=== PATIENT | female | born 1950 | race Caucasian/White ===

== ENCOUNTER 2017-05-02 13:59 | Emergency (ER) | payer MEDICARE, OTHER ==
[2017-05-02] MEDS ORDERED: Aspirin 81 MG Tab.Chew PO ONE (14:06)
[2017-05-02] MEDS ORDERED: Sodium Chloride 0.9% 10 ML Syringe FLUSH PRN (14:06)
[2017-05-02 14:12] VITALS: BP 136/57
--- NOTE | 2017-05-02 14:19 | EDM.PDOC ---
ED HPI GENERAL MEDICAL PROBLEM - General Chief Complaint: Chest Pain Stated Complaint: SOB Time Seen by Provider: 05/02/17 14:00 Source of Information: Reports: Patient History Limitations: Reports: No Limitations - History of Present Illness INITIAL COMMENTS - FREE TEXT/NARRATIVE: Debo comes in approximately 10 minutes after experiencing an episode of dizziness, rapid heart beat and weakness, associated with some retrosternal chest pains. Sxs lasted for less than a minute, but she is visibly shaken. There was no headache, change in vision, SOB, nausea, or sweats. Of interest is a PMH of "racing heart" studied at the [facility] in 2010, no confirmation of tachyarrthymia, and managed with Cartia XT successfully over the past 4 years. She has been med compliant. Chest Pain Score (Numeric/FACES): 0 - Related Data Allergies Allergy/AdvReac Type Severity Reaction Status Date / Time Antihistamines - Alkylamine Allergy Cannot Verified 05/02/17 14:05 Remember iodine Allergy Cannot Verified 05/02/17 14:05 Remember Penicillins Allergy Cannot Verified 05/02/17 14:05 Remember povidone-iodine Allergy Cannot Verified 05/02/17 14:05 [From Betadine] Remember soap [From Betadine] Allergy Cannot Verified 05/02/17 14:05 Remember Sulfa (Sulfonamide Allergy Cannot Verified 05/02/17 14:05 Antibiotics) Remember Home Meds: Home Meds Aspirin [Adult Low Dose Aspirin EC] 81 mg PO DAILY 01/30/14 [History] Diltiazem [Cardizem CD] 180 mg PO DAILY 01/30/14 [History] Hydrochlorothiazide/Lisinopril [Lisinopril/HCTZ 20-12.5 MG] 1 tab PO DAILY 01/30 [History] atorvaSTATin Calcium [Atorvastatin Calcium] 10 mg PO DAILY 01/30/14 [History] Past Medical History Cardiovascular History: Reports: Other (See Below) (cardiac dysrhythmia) Social & Family History - Tobacco Use Second Hand Smoke Exposure: Yes - Alcohol Use Days Per Week of Alcohol Use: 0 - Recreational Drug Use Recreational Drug Use: No ED ROS GENERAL - Review of Systems Review Of Systems: ROS reveals no pertinent complaints other than HPI. ED EXAM, GENERAL - Physical Exam Exam: See Below Exam Limited By: No Limitations General Appearance: Alert, WD/WN, Anxious Throat/Mouth: Normal Inspection, Normal Oropharynx, No Airway Compromise Head: Normocephalic Neck: Normal Inspection, Supple, Non-Tender Respiratory/Chest: No Respiratory Distress, Lungs Clear, Normal Breath Sounds, Chest Non-Tender Cardiovascular: Normal Peripheral Pulses, Regular Rate, Rhythm, No Edema, No Gallop, No Murmur GI/Abdominal: Normal Bowel Sounds, Soft, Non-Tender, No Organomegaly, No Distention, No Mass Back Exam: Normal Inspection Extremities: Normal Inspection Neurological: Alert, Oriented, CN II-XII Intact, Normal Cognition, No Motor/ Sensory Deficits Psychiatric: Normal Affect, Anxious Skin Exam: Warm, Dry Lymphatic: No Adenopathy Course - Vital Signs Text/Narrative:: Debo remained stable at the [facility] ED. No meds were administered. She remained in a NSR. Last Recorded V/S: Last Vital Signs Temp 36.6 C 05/02/17 14:10 Pulse 94 05/02/17 14:10 Resp 21 H 05/02/17 14:10 BP 136/57 L 05/02/17 14:10 Pulse Ox 95 05/02/17 14:10 - Orders/Labs/Meds Orders: Active Orders 24 hr Category Date Time Status EKG Documentation Completion [RC] ASDIRECTED Care 05/02/17 14:06 Active Sodium Chloride 0.9% [Saline Flush] Med 05/02/17 14:06 Active 10 ml FLUSH ASDIRECTED PRN Saline Lock Insert [OM.PC] Routine Oth 05/02/17 14:06 Ordered EKG 12 Lead [EK] Routine Ther 05/02/17 14:05 Ordered Medication Orders Sodium Chloride (Saline Flush) 10 ml FLUSH ASDIRECTED PRN PRN Reason: Keep Vein Open Last Admin: 05/02/17 14:12 Dose: 10 ml Labs: Laboratory Tests 05/02/17 05/02/17 05/02/17 Range/Units 14:15 14:15 14:15 WBC 8.1 (4.5-12.0) X10-3/uL RBC 4.70 (3.23-5.20) x10(6)uL Hgb 14.1 (11.5-15.5) g/dL Hct 41.8 (30.0-51.3) % MCV 88.9 (80-96) fL MCH 30.1 (27.7-33.6) pg MCHC 33.8 (32.2-35.4) g/dL RDW 12.8 (11.5-15.5) % Plt Count 251 (125-369) X10(3)uL MPV 8.4 (7.4-10.4) fL Neut % (Auto) 64.7 (46-82) % Lymph % (Auto) 25.6 (13-37) % [place] % (Auto) 7.0 (4-12) % Eos % (Auto) 2 (1.0-5.0) % Baso % (Auto) 1 (0-2) % Neut # (Auto) 5.2 (1.6-8.3) # Lymph # (Auto) 2.1 (0.6-5.0) # [place] # (Auto) 0.6 (0.0-1.3) # Eos # (Auto) 0.2 (0.0-0.8) # Baso # (Auto) 0.0 (0.0-0.2) # Sodium 137 (135-145) mmol/L Potassium 3.9 (3.5-5.3) mmol/L Chloride 105 (100-110) mmol/L Carbon Dioxide 23 (23-29) mmol/L BUN 21 (8-23) mg/dL Creatinine 1.2 (0.6-1.3) mg/dL Est Cr Clr Drug Dosing 41.50 mL/min Estimated GFR (MDRD) 45 L (>60) BUN/Creatinine Ratio 17.5 (9-20) Glucose 152 H (80-116) mg/dL Calcium 9.4 (8.6-10.2) mg/dL Total Bilirubin 0.7 (0.1-1.3) mg/dL AST 22 (5-27) IU/L ALT 14 (14-26) IU/L Alkaline Phosphatase 92 (56-112) IU/L Troponin I < 0.01 L (0.02-0.06) NG/ML Total Protein 7.4 (6.0-8.0) g/dL Albumin 4.4 (3.2-4.6) g/dL Globulin 3.0 g/dL Albumin/Globulin Ratio 1.5 TSH, Ultra Sensitive (0.4-5.5) nlU/mL 09/03/17 Range/Units 14:15 WBC (4.5-12.0) X10-3/uL RBC (3.23-5.20) x10(6)uL Hgb (11.5-15.5) g/dL Hct (30.0-51.3) % MCV (80-96) fL MCH (27.7-33.6) pg MCHC (32.2-35.4) g/dL RDW (11.5-15.5) % Plt Count (125-369) X10(3)uL MPV (7.4-10.4) fL Neut % (Auto) (46-82) % Lymph % (Auto) (13-37) % [place] % (Auto) (4-12) % Eos % (Auto) (1.0-5.0) % Baso % (Auto) (0-2) % Neut # (Auto) (1.6-8.3) # Lymph # (Auto) (0.6-5.0) # [place] # (Auto) (0.0-1.3) # Eos # (Auto) (0.0-0.8) # Baso # (Auto) (0.0-0.2) # Sodium (135-145) mmol/L Potassium (3.5-5.3) mmol/L Chloride (100-110) mmol/L Carbon Dioxide (23-29) mmol/L BUN (8-23) mg/dL Creatinine (0.6-1.3) mg/dL Est Cr Clr Drug Dosing mL/min Estimated GFR (MDRD) (>60) BUN/Creatinine Ratio (9-20) Glucose (80-116) mg/dL Calcium (8.6-10.2) mg/dL Total Bilirubin (0.1-1.3) mg/dL AST (5-27) IU/L ALT (14-26) IU/L Alkaline Phosphatase (56-112) IU/L Troponin I (0.02-0.06) NG/ML Total Protein (6.0-8.0) g/dL Albumin (3.2-4.6) g/dL Globulin g/dL Albumin/Globulin Ratio TSH, Ultra Sensitive 1.67 (0.4-5.5) nlU/mL Meds: Medications Generic Name Dose Route Start Last Admin Trade Name Kolton PRN Reason Stop Dose Admin Sodium Chloride 10 ml 05/02/17 14:06 05/02/17 14:12 Saline Flush FLUSH 10 ml ASDIRECTED PRN Administration Keep Vein Open Discontinued Medications Generic Name Dose Route Start Last Admin Trade Name Kolton PRN Reason Stop Dose Admin Aspirin 324 mg 05/02/17 14:06 05/02/17 14:00 Aspirin PO 05/02/17 14:07 324 mg ONETIME ONE Administration Departure - Departure Time of Disposition: 15:05 Disposition: Home, Self-Care 01 Condition: Good Clinical Impression: Atypical chest pain Forms: ED Department Discharge - Problem List & Annotations (1) Atypical chest pain SNOMED Code(s): 336262005 Code(s): R07.89 - OTHER CHEST PAIN Status: Acute Annotation/Comment:: Atypical chest pain, resolved. There were transient co-morbid sxs of dizziness that were momentary. She is asx. She will remain on the Cartia XT as directed, and follow up with PCP. - Problem List Review Problem List Initiated/Reviewed/Updated: Yes - My Orders Last 24 Hours: My Active Orders 05/02/17 14:05 EKG 12 Lead [EK] Routine 05/02/17 14:06 EKG Documentation Completion [RC] ASDIRECTED Sodium Chloride 0.9% [Saline Flush] 10 ml FLUSH ASDIRECTED PRN Saline Lock Insert [OM.PC] Routine - Assessment/Plan Last 24 Hours: My Active Orders 05/02/17 14:05 EKG 12 Lead [EK] Routine 05/02/17 14:06 EKG Documentation Completion [RC] ASDIRECTED Sodium Chloride 0.9% [Saline Flush] 10 ml FLUSH ASDIRECTED PRN Saline Lock Insert [OM.PC] Routine Plan: Follow up with PCP.
== END 2017-05-02 15:10 | disposition home or self-care (01) ==
LOC: FB.ED 13:59
DX: R07.89 Other chest pain (principal); Z88.0 Allergy status to penicillin; Z88.2 Allergy status to sulfonamides; Z91.048 Other nonmedicinal substance allergy status; Z88.6 Allergy status to analgesic agent; Z79.82 Long term (current) use of aspirin
CPT/HCPCS: 36415; 80053; 84443; 84484; 85025; 93005; 99285; A9270; J7050; 99283

== ENCOUNTER 2018-12-27 01:10 | Emergency (ER) | payer MEDICARE, OTHER ==
[2018-12-27 01:29] VITALS: BP 132/63
[2018-12-27] MEDS ORDERED: Aspirin 81 MG Tab.Chew PO ONE (01:38)
[2018-12-27] MEDS ORDERED: Sodium Chloride 0.9% 500 ML IV ONE (01:39)
[2018-12-27] MEDS ORDERED: Aspirin 81 MG Tab.Chew PO STA (01:40)
--- NOTE | 2018-12-27 01:42 | EDM.PDOC ---
ED HPI GENERAL MEDICAL PROBLEM - General Chief Complaint: Cardiovascular Problem Stated Complaint: CHEST DISCOMFORT Time Seen by Provider: 12/27/18 01:10 Source of Information: Reports: Patient, Family History Limitations: Reports: No Limitations - History of Present Illness INITIAL COMMENTS - FREE TEXT/NARRATIVE: 68 y.o.w.f with a h/o HTN, came to the ED with her due to right shoulder pain which started a few min after she got dizzy and lightheaded while driving her car. Pt took 91 mg of ASA EXTRACTOR PULLER. On arrival to the ED, he c/o right arm pain, going up her shoulder and neck. The pain is present at rest, worse with movement of her shoulder. Pt denied trauma. No F/C, No N/V no sob. BP 132/ 63 RR 18 Pulse ox 96% on RA Pulse 71 Temp 36.6 Onset Date: 12/26/18 Onset Time: 17:00 Duration: Hour(s):, Intermittent Location: Reports: Upper Extremity, Right Quality: Reports: Ache, Burning, Dull Severity: Moderate Improves with: Reports: Rest Worsens with: Reports: Movement (of right shoulder) Context: Reports: Other (pain came on at rest.) Associated Symptoms: Reports: Diaphoresis Treatments EXTRACTOR PULLER: Reports: Aspirin (81 mg) R shoulder & neck Pain Score (Numeric/FACES): 7 - Related Data Allergies Allergy/AdvReac Type Severity Reaction Status Date / Time Antihistamines - Alkylamine Allergy Cannot Verified 12/27/18 01:20 Remember iodine Allergy Cannot Verified 12/27/18 01:20 Remember Penicillins Allergy Cannot Verified 12/27/18 01:20 Remember povidone-iodine Allergy Cannot Verified 12/27/18 01:20 [From Betadine] Remember soap [From Betadine] Allergy Cannot Verified 12/27/18 01:20 Remember Sulfa (Sulfonamide Allergy Cannot Verified 12/27/18 01:20 Antibiotics) Remember Home Meds: Home Meds Aspirin [Adult Low Dose Aspirin EC] 81 mg PO DAILY 01/30/14 [History] Diltiazem [Cardizem CD] 180 mg PO DAILY 01/30/14 [History] Hydrochlorothiazide/Lisinopril [Lisinopril/HCTZ 20-12.5 MG] 1 tab PO DAILY 01/30 [History] atorvaSTATin Calcium [Atorvastatin Calcium] 10 mg PO BEDTIME 01/30/14 [History] Past Medical History Cardiovascular History: Reports: Other (See Below) (cardiac dysrhythmia) 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: Musculoskeletal History: Reports: Back Pain, Chronic - Past Surgical History GI Surgical History: Reports: Appendectomy, Cholecystectomy, Colonoscopy Social & Family History - Caffeine Use Caffeine Use: Reports: Coffee ED ROS GENERAL - Review of Systems Review Of Systems: See Below Constitutional: Reports: No Symptoms HEENT: Reports: No Symptoms Respiratory: Reports: No Symptoms Cardiovascular: Reports: Chest Pain, Lightheadedness Endocrine: Reports: No Symptoms GI/Abdominal: Reports: No Symptoms : Reports: No Symptoms Musculoskeletal: Reports: No Symptoms Skin: Reports: No Symptoms Neurological: Reports: No Symptoms Psychiatric: Reports: No Symptoms Hematologic/Lymphatic: Reports: No Symptoms Immunologic: Reports: No Symptoms ED EXAM, GENERAL - Physical Exam Exam: See Below Exam Limited By: No Limitations General Appearance: Alert, WD/WN, Moderate Distress Eye Exam: Bilateral Eye: Normal Inspection Ears: Normal External Exam Ear Exam: Bilateral Ear: Auricle Normal Nose: Normal Inspection Throat/Mouth: Normal Inspection Head: Atraumatic, Normocephalic Neck: Normal Inspection, Supple, Non-Tender Respiratory/Chest: No Respiratory Distress, Lungs Clear, Normal Breath Sounds, Chest Non-Tender Cardiovascular: Normal Peripheral Pulses, Regular Rate, Rhythm, No Edema Peripheral Pulses: 1+: Brachial (R) GI/Abdominal: Normal Bowel Sounds, Soft, Non-Tender, No Organomegaly (Female) Exam: Deferred Rectal (Female) Exam: Deferred Back Exam: Normal Inspection, Full Range of Motion Extremities: Normal Inspection, Normal Range of Motion, Non-Tender Neurological: Alert, Oriented, CN II-XII Intact, Normal Cognition, Normal Gait Psychiatric: Normal Affect, Normal Mood Skin Exam: Warm, Dry, Intact, Normal Color, No Rash Lymphatic: No Adenopathy EKG INTERPRETATION EKG Date: 12/27/18 Time: 01:15 Rhythm: NSR Rate (Beats/Min): 68 [place]: Normal P-Wave: Present QRS: Normal ST-T: Normal QT: Normal Comparison: NA - No Prior EKG Course - Vital Signs Text/Narrative:: 68 y.o.w.f with a h/o HTN, came to the ED with her due to right shoulder pain which started a few min after she got dizzy and lightheaded while driving her car. Pt took 91 mg of ASA EXTRACTOR PULLER. On arrival to the ED, he c/o right arm pain, going up her shoulder and neck. The pain is present at rest, worse with movement of her shoulder. Pt denied trauma. No F/C, No N/V no sob. BP 132/ 63 RR 18 Pulse ox 96% on RA Pulse 71 Temp 36.6 PE: Obese 68 y.o.w.f with right shoulder gill at rest Imaging: CXR: NAD Angio CT: Unable to be performed due to allergica to iodine Labs: D Dimer: 0.81 CBC neg except WBC 12.4 BMP Nl except BUN was 25 Cr 1.3 GFR 41 Ca 10.4 Troponin was nl 0.017 Impression: Elevated D Dimer, unstable angina Tx: ASA, Lovenox 3.14 am Consultation: Fan, Hospitalist, [facility]: Accepted the patient for transfer and further care. Reexam: Her pain subsided after Tx Plan: Transfer to [facility] for further care Last Recorded V/S: Last Vital Signs Temp 36.4 C 12/27/18 01:10 Pulse 78 12/27/18 01:10 Resp 18 12/27/18 01:10 BP 132/63 12/27/18 01:10 Pulse Ox 96 12/27/18 01:10 - Orders/Labs/Meds Orders: Active Orders 24 hr Category Date Time Status Ang Chest [CT] Stat Exams 12/27/18 02:18 Ordered Chest 1V Frontal [CR] Stat Exams 12/27/18 01:39 Taken Peripheral IV Insertion Adult [OM.PC] Routine Oth 12/27/18 03:37 Ordered Labs: Laboratory Tests 12/27/18 12/27/18 12/27/18 Range/Units 01:15 01:15 01:15 WBC 12.1 H (4.5-12.0) X10-3/uL RBC 5.03 (3.23-5.20) x10(6)uL Hgb 15.3 (11.5-15.5) g/dL Hct 45.6 (30.0-51.3) % MCV 90.6 (80-96) fL MCH 30.3 (27.7-33.6) pg MCHC 33.5 (32.2-35.4) g/dL RDW 12.8 (11.5-15.5) % Plt Count 229 (125-369) X10(3)uL MPV 9.5 (7.4-10.4) fL Neut % (Auto) 69.2 (46-82) % Lymph % (Auto) 20.4 (13-37) % [place] % (Auto) 6.5 (4-12) % Eos % (Auto) 2 (1.0-5.0) % Baso % (Auto) 2 (0-2) % Neut # (Auto) 8.4 H (1.6-8.3) # Lymph # (Auto) 2.5 (0.6-5.0) # [place] # (Auto) 0.8 (0.0-1.3) # Eos # (Auto) 0.2 (0.0-0.8) # Baso # (Auto) 0.2 (0.0-0.2) # PT 9.6 (8.7-11.1) INR 0.99 (0.89-1.13) D-Dimer, Quantitative 0.81 H (0.0-0.59) mg/LFEU Sodium 140 (135-145) mmol/L Potassium 3.7 (3.5-5.3) mmol/L Chloride 103 (100-110) mmol/L Carbon Dioxide 29 (21-32) mmol/L BUN 25 H (7-18) mg/dL Creatinine 1.3 H (0.55-1.02) mg/dL Est Cr Clr Drug Dosing 37.27 mL/min Estimated GFR (MDRD) 41 L (>60) BUN/Creatinine Ratio 19.2 (9-20) Glucose 122 H (80-116) mg/dL Calcium 10.4 H (8.6-10.2) mg/dL Magnesium (1.8-2.5) mg/dL Troponin I (<0.017-0.056) ng/mL 12/27/18 12/27/18 Range/Units 01:15 01:15 WBC (4.5-12.0) X10-3/uL RBC (3.23-5.20) x10(6)uL Hgb (11.5-15.5) g/dL Hct (30.0-51.3) % MCV (80-96) fL MCH (27.7-33.6) pg MCHC (32.2-35.4) g/dL RDW (11.5-15.5) % Plt Count (125-369) X10(3)uL MPV (7.4-10.4) fL Neut % (Auto) (46-82) % Lymph % (Auto) (13-37) % [place] % (Auto) (4-12) % Eos % (Auto) (1.0-5.0) % Baso % (Auto) (0-2) % Neut # (Auto) (1.6-8.3) # Lymph # (Auto) (0.6-5.0) # [place] # (Auto) (0.0-1.3) # Eos # (Auto) (0.0-0.8) # Baso # (Auto) (0.0-0.2) # PT (8.7-11.1) INR (0.89-1.13) D-Dimer, Quantitative (0.0-0.59) mg/LFEU Sodium (135-145) mmol/L Potassium (3.5-5.3) mmol/L Chloride (100-110) mmol/L Carbon Dioxide (21-32) mmol/L BUN (7-18) mg/dL Creatinine (0.55-1.02) mg/dL Est Cr Clr Drug Dosing mL/min Estimated GFR (MDRD) (>60) BUN/Creatinine Ratio (9-20) Glucose (80-116) mg/dL Calcium (8.6-10.2) mg/dL Magnesium 2.0 (1.8-2.5) mg/dL Troponin I < 0.017 L (<0.017-0.056) ng/mL Meds: Medications Discontinued Medications Generic Name Dose Route Start Last Admin Trade Name Romeoq PRN Reason Stop Dose Admin Aspirin 243 mg 12/27/18 01:38 12/27/18 01:43 Aspirin PO 12/27/18 01:39 243 mg ONETIME ONE Administration Aspirin 162 mg 12/27/18 01:40 12/27/18 01:44 Aspirin PO 12/27/18 01:41 Not Given ONETIME STA Enoxaparin Sodium 100 mg 12/27/18 03:25 12/27/18 03:37 Lovenox SUBCUT 12/27/18 03:26 100 mg ONETIME STA Administration Sodium Chloride 500 mls @ 999 mls/hr 12/27/18 01:39 12/27/18 03:37 Normal Saline IV 12/27/18 02:09 Not Given .BOLUS ONE Iopamidol 75 ml 12/27/18 02:27 Isovue-370 (76%) IV 12/27/18 02:28 ASDIRECTED ONE Sodium Chloride 10 ml 12/27/18 03:37 12/27/18 02:25 Saline Flush FLUSH 10 ml ASDIRECTED PRN Administration Keep Vein Open Departure - Departure Time of Disposition: 03:49 Disposition: DC/Tfer to Acute Hospital 02 Reason for Transfer *Q: Other (No VQ scan availability) Condition: Fair Clinical Impression: Unstable angina, D-dimer, elevated Instructions: Enoxaparin injection Referrals: Rizwan Vo MD [Primary Care Provider] - Forms: ED Department Discharge - My Orders Last 24 Hours: My Active Orders 12/27/18 01:39 Chest 1V Frontal [CR] Stat 12/27/18 02:18 Ang Chest [CT] Stat 12/27/18 03:37 Peripheral IV Insertion Adult [OM.PC] Routine - Assessment/Plan Last 24 Hours: My Active Orders 12/27/18 01:39 Chest 1V Frontal [CR] Stat 12/27/18 02:18 Ang Chest [CT] Stat 12/27/18 03:37 Peripheral IV Insertion Adult [OM.PC] Routine
[2018-12-27] MEDS ORDERED: Iopamidol 755 Mg/ML 75 ML Bottle IV ONE (02:27)
[2018-12-27] MEDS ORDERED: Enoxaparin 100 MG/1 ML Syringe SUBCUT STA (03:25)
[2018-12-27] MEDS ORDERED: Sodium Chloride 0.9% 10 ML Syringe FLUSH PRN (03:37)
--- NOTE | 2018-12-27 10:23 | CR ---
INDICATION: Chest pain. CHEST ONE VIEW: AP portable upright view of the chest was obtained 12/27/18 and compared with 10/18/10. The heart did not appear enlarged. The aorta is tortuous to a moderate degree. Overlying EKG leads are noted. A definite active infiltrate or effusion was not identified. Evidence of exogenous obesity is noted. IMPRESSION: No acute process. MTDD
== END 2018-12-27 04:36 ==
LOC: FB.ED 01:10
DX: I20.0 Unstable angina (principal); R79.1 Abnormal coagulation profile; Z88.0 Allergy status to penicillin; Z88.8 Allergy status to other drugs, medicaments and biological substances; Z88.2 Allergy status to sulfonamides; Z79.82 Long term (current) use of aspirin; Z79.899 Other long term (current) drug therapy
CPT/HCPCS: 36415; 71045; 80048; 83735; 84484; 85025; 85379; 85610; 96372; 99284; A9270; J1650

== ENCOUNTER 2020-07-17 15:29 | Emergency (ER) | payer MEDICARE, OTHER ==
[2020-07-17] MEDS ORDERED: Sodium Chloride 0.9% 10 ML Syringe FLUSH PRN (15:48)
[2020-07-17] MEDS ORDERED: Diltiazem 25 MG/5 ML SDV IVPUSH STA (15:55)
[2020-07-17] MEDS ORDERED: Diltiazem 25 MG/5 ML SDV IVPUSH ONE (16:59)
--- NOTE | 2020-07-17 18:25 | EDM.PDOC ---
ED HPI GENERAL MEDICAL PROBLEM - General Chief Complaint: General Stated Complaint: WEAKNESS,DIZZINESS Time Seen by Provider: 07/17/20 15:40 Source of Information: Reports: Patient History Limitations: Reports: No Limitations - History of Present Illness INITIAL COMMENTS - FREE TEXT/NARRATIVE: patient presented to the ED from the clinic because of palpitations, weakness, and dizziness. When she was triaged in the clinic she was tachycardic at 189 although she denies any chest pain, nausea, vomiting, or dyspnea. She also c/o being constipated for 1 week now. low abdomen Pain Score (Numeric/FACES): 3 - Related Data Allergies Allergy/AdvReac Type Severity Reaction Status Date / Time Antihistamines - Alkylamine Allergy Cannot Verified 07/17/20 15:44 Remember iodine Allergy Cannot Verified 07/17/20 15:44 Remember Penicillins Allergy Cannot Verified 07/17/20 15:44 Remember povidone-iodine Allergy Cannot Verified 07/17/20 15:44 [From Betadine] Remember soap [From Betadine] Allergy Cannot Verified 07/17/20 15:44 Remember Sulfa (Sulfonamide Allergy Cannot Verified 07/17/20 15:44 Antibiotics) Remember Home Meds: Home Meds Aspirin [Adult Low Dose Aspirin EC] 81 mg PO DAILY 01/30/14 [History] Diltiazem [Cardizem CD] 180 mg PO DAILY 01/30/14 [History] Hydrochlorothiazide/Lisinopril [Lisinopril/HCTZ 20-12.5 MG] 1 tab PO DAILY 01/30/14 [History] atorvaSTATin Calcium [Atorvastatin Calcium] 10 mg PO BEDTIME 01/30/14 [History] Past Medical History Cardiovascular History: Reports: Other (See Below) (cardiac dysrhythmia) Gastrointestinal History: Reports: GERD 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: Musculoskeletal History: Reports: Back Pain, Chronic Endocrine/Metabolic History: Reports: Obesity/BMI 30+ Oncologic (Cancer) History: Reports: Malignant Melanoma Dermatologic History: Reports: Melanoma - Infectious Disease History Infectious Disease History: Reports: Chicken Pox, Influenza, Measles, Mumps - Past Surgical History GI Surgical History: Reports: Appendectomy, Cholecystectomy, Colonoscopy Social & Family History - Family History Family Medical History: No Pertinent Family History - Caffeine Use Caffeine Use: Reports: Coffee ED ROS GENERAL - Review of Systems Review Of Systems: See Below Constitutional: Reports: No Symptoms HEENT: Reports: No Symptoms Respiratory: Reports: No Symptoms Cardiovascular: Reports: Lightheadedness, Palpitations Endocrine: Reports: No Symptoms GI/Abdominal: Reports: Constipation : Reports: No Symptoms Musculoskeletal: Reports: No Symptoms Skin: Reports: No Symptoms Neurological: Reports: Dizziness ED EXAM, GENERAL - Physical Exam Exam: See Below Exam Limited By: No Limitations General Appearance: Alert, No Apparent Distress Ears: Normal External Exam, Normal Canal, Hearing Grossly Normal Nose: Normal Inspection, Normal Mucosa Throat/Mouth: Normal Inspection, Normal Lips, Normal Teeth Head: Atraumatic, Normocephalic Neck: Normal Inspection, Supple, Non-Tender, Full Range of Motion Respiratory/Chest: No Respiratory Distress, Lungs Clear, Normal Breath Sounds Cardiovascular: Normal Peripheral Pulses, No Edema, No Gallop, Tachycardia GI/Abdominal: Normal Bowel Sounds, Soft, Non-Tender, No Organomegaly Back Exam: Normal Inspection, Full Range of Motion Extremities: Normal Inspection, Normal Range of Motion, Non-Tender Neurological: Alert, Oriented, CN II-XII Intact, Normal Cognition, Normal Gait Course - Vital Signs Text/Narrative:: Labs/EKG result was discussed with patient EKG-Sinus Tachycardia Cardizem a total of 25 mg IV was given and her HR was down to 70's upon discharge and her symptoms resolved. Last Recorded V/S: Last Vital Signs Temp 36.6 C 07/17/20 18:40 Pulse 77 07/17/20 18:40 Resp 18 07/17/20 18:40 BP 136/72 07/17/20 18:40 Pulse Ox 98 07/17/20 18:40 - Orders/Labs/Meds Orders: Active Orders 24 hr Category Date Time Status Saline Lock Insert [OM.PC] Routine Oth 07/17/20 15:48 Ordered EKG 12 Lead [EK] Routine Ther 07/17/20 15:48 Ordered Labs: Laboratory Tests 07/17/20 07/17/20 07/17/20 Range/Units 16:15 16:35 16:35 WBC 10.5 H (3.0-10.3) x10-3/uL RBC 4.80 (3.60-5.20) x10(6)uL Hgb 14.7 (11.4-15.5) g/dL Hct 43.1 (34.2-48.2) % MCV 89.9 (76.7-100.5) fL MCH 30.6 (23.9-33.9) pg MCHC 34.1 (31.9-34.8) g/dL RDW 13.3 (12.3-16.5) % Plt Count 293 (151-488) x10(3)uL MPV 10.0 (7.1-12.4) fL Neut % (Auto) 78.0 H (30.8-76.2) % Lymph % (Auto) 12.3 L (18.4-52.1) % [place] % (Auto) 8.5 (4.4-15.7) % Eos % (Auto) 0.5 L (0.6-8.1) % Baso % (Auto) 0.7 (0.2-1.5) % Neut # (Auto) 8.2 H (1.5-6.3) x10-3/uL Lymph # (Auto) 1.3 (1.0-4.4) x10-3/uL [place] # (Auto) 0.9 (0.3-1.0) x10-3/uL Eos # (Auto) 0.1 (0.0-0.8) x10-3/uL Baso # (Auto) 0.1 (0.0-0.1) x10-3/uL Sodium 141 (135-145) mmol/L Potassium 3.4 L (3.5-5.3) mmol/L Chloride 102 (100-110) mmol/L Carbon Dioxide 28 (21-32) mmol/L BUN 16 (7-18) mg/dL Creatinine 1.3 H (0.55-1.02) mg/dL Est Cr Clr Drug Dosing 34.77 mL/min Estimated GFR (MDRD) 40 L (>60) BUN/Creatinine Ratio 12.3 (9-20) Glucose 98 (80-116) mg/dL Calcium 9.9 (8.6-10.2) mg/dL Magnesium 2.0 (1.8-2.5) mg/dL Total Bilirubin 0.6 (0.1-1.3) mg/dL AST 18 (5-25) IU/L ALT 24 (12-36) U/L Alkaline Phosphatase 141 H (56-112) IU/L Troponin I (4.0-60.3) pg/mL Total Protein 7.8 (6.0-8.0) g/dL Albumin 3.6 (3.2-4.6) g/dL Globulin 4.2 g/dL Albumin/Globulin Ratio 0.9 Urine Color Yellow (YELLOW) Urine Appearance Clear (CLEAR) Urine pH 6.5 (5.0-6.5) Ur Specific [place] 1.005 L (1.010-1.025) Urine Protein Negative (NEGATIVE) mg/dL Urine Glucose (UA) Normal (NORMAL) mg/dL Urine Ketones Negative (NEGATIVE) mg/dL Urine Occult Blood Negative (NEGATIVE) Urine Nitrite Negative (NEGATIVE) Urine Bilirubin Negative (NEGATIVE) Urine Urobilinogen Normal (NEGATIVE) mg/dL Ur Leukocyte Esterase Negative (NEGATIVE) Urine RBC 0-5 (0-5) Urine WBC 0-5 (0-5) Ur Squamous Epith Cells Occasional (NS,R,O) Urine Bacteria Rare H (NS) 07/17/20 Range/Units 16:35 WBC (3.0-10.3) x10-3/uL RBC (3.60-5.20) x10(6)uL Hgb (11.4-15.5) g/dL Hct (34.2-48.2) % MCV (76.7-100.5) fL MCH (23.9-33.9) pg MCHC (31.9-34.8) g/dL RDW (12.3-16.5) % Plt Count (151-488) x10(3)uL MPV (7.1-12.4) fL Neut % (Auto) (30.8-76.2) % Lymph % (Auto) (18.4-52.1) % [place] % (Auto) (4.4-15.7) % Eos % (Auto) (0.6-8.1) % Baso % (Auto) (0.2-1.5) % Neut # (Auto) (1.5-6.3) x10-3/uL Lymph # (Auto) (1.0-4.4) x10-3/uL [place] # (Auto) (0.3-1.0) x10-3/uL Eos # (Auto) (0.0-0.8) x10-3/uL Baso # (Auto) (0.0-0.1) x10-3/uL Sodium (135-145) mmol/L Potassium (3.5-5.3) mmol/L Chloride (100-110) mmol/L Carbon Dioxide (21-32) mmol/L BUN (7-18) mg/dL Creatinine (0.55-1.02) mg/dL Est Cr Clr Drug Dosing mL/min Estimated GFR (MDRD) (>60) BUN/Creatinine Ratio (9-20) Glucose (80-116) mg/dL Calcium (8.6-10.2) mg/dL Magnesium (1.8-2.5) mg/dL Total Bilirubin (0.1-1.3) mg/dL AST (5-25) IU/L ALT (12-36) U/L Alkaline Phosphatase (56-112) IU/L Troponin I 8.5 (4.0-60.3) pg/mL Total Protein (6.0-8.0) g/dL Albumin (3.2-4.6) g/dL Globulin g/dL Albumin/Globulin Ratio Urine Color (YELLOW) Urine Appearance (CLEAR) Urine pH (5.0-6.5) Ur Specific [place] (1.010-1.025) Urine Protein (NEGATIVE) mg/dL Urine Glucose (UA) (NORMAL) mg/dL Urine Ketones (NEGATIVE) mg/dL Urine Occult Blood (NEGATIVE) Urine Nitrite (NEGATIVE) Urine Bilirubin (NEGATIVE) Urine Urobilinogen (NEGATIVE) mg/dL Ur Leukocyte Esterase (NEGATIVE) Urine RBC (0-5) Urine WBC (0-5) Ur Squamous Epith Cells (NS,R,O) Urine Bacteria (NS) Meds: Medications Discontinued Medications Generic Name Dose Route Start Last Admin Trade Name Freq PRN Reason Stop Dose Admin Diltiazem HCl 15 mg 07/17/20 15:55 07/17/20 16:43 Diltiazem IVPUSH 07/17/20 15:56 15 mg NOW STA Administration Diltiazem HCl 10 mg 07/17/20 16:59 07/17/20 17:45 Diltiazem IVPUSH 07/17/20 17:00 10 mg ONETIME ONE Administration Sodium Chloride 10 ml 07/17/20 15:48 07/17/20 16:20 Saline Flush FLUSH 10 ml ASDIRECTED PRN Administration Keep Vein Open Departure - Departure Time of Disposition: 18:25 Disposition: Home, Self-Care 01 Condition: Good Clinical Impression: Palpitations, Constipation - Discharge Information Instructions: Constipation, Adult, [id number], Palpitations, [id number] Referrals: Sanchez Garcia MD [Primary Care Provider] - Forms: ED Department Discharge Additional Instructions: Please read discharge instructions on palpitations and constipation Increase oral fluids Take the prescription that Dr Garcia prescribed you. Take it wit 2 scoops of miralax dissolved in 2 glasses of water. Take it daiily until you have a normal bowel movement Sepsis Event Note (ED) - Evaluation Sepsis Screening Result: No Definite Risk - My Orders Last 24 Hours: My Active Orders 07/17/20 15:48 Saline Lock Insert [OM.PC] Routine EKG 12 Lead [EK] Routine - Assessment/Plan Last 24 Hours: My Active Orders 07/17/20 15:48 Saline Lock Insert [OM.PC] Routine EKG 12 Lead [EK] Routine
[2020-07-17 19:52] VITALS: BP 136/72; PULSE 77
--- NOTE | 2020-07-17 20:58 | CR ---
CHEST ONE VIEW INDICATION: Weakness, dyspnea. An AP upright portable view of the chest was obtained 07/17/2020 and compared with and 10/18/2010 again revealing evidence of exogenous obesity. The heart appeared slightly prominent but likely is at the upper limits of normal in size. Overlying EKG leads and snaps noted. The aorta is tortuous. A definite active infiltrate or effusion was not identified. No definite evidence of CHF is seen, although comparatively to the previous examination, there appears to be slightly increased prominence of upper lung field pulmonary vasculature raising question of pulmonary vascular congestion. This could be on the basis of CHF but should be correlated clinically as fluid overload or other abnormality could be present. MTDD
== END 2020-07-17 18:40 | disposition home or self-care (01) ==
LOC: FB.ED 15:29
DX: R00.2 Palpitations (principal); K59.00 Constipation, unspecified; E66.9 Obesity, unspecified; Z68.39 Body mass index [BMI] 39.0-39.9, adult; Z88.8 Allergy status to other drugs, medicaments and biological substances; Z91.048 Other nonmedicinal substance allergy status; Z88.0 Allergy status to penicillin; Z88.2 Allergy status to sulfonamides; Z79.82 Long term (current) use of aspirin; Z79.899 Other long term (current) drug therapy
CPT/HCPCS: 36415; 71045; 80053; 81001; 83735; 84484; 85025; 93005; 96374; 96376; 99285; J3490

== ENCOUNTER 2020-10-02 20:56 | Emergency (ER) | payer MEDICARE, OTHER ==
[2020-10-02 21:14] VITALS: BP 124/65; PULSE 145
[2020-10-02] MEDS ORDERED: Diltiazem 25 MG/5 ML SDV IVPUSH ONE ×4 (21:16→21:55)
[2020-10-02] MEDS ORDERED: Sodium Chloride 0.9% 500 ML IV ONE (21:23)
[2020-10-02] MEDS ORDERED: Sodium Chloride 0.9% 10 ML Syringe FLUSH PRN (21:29)
[2020-10-02] MEDS ORDERED: Digoxin 500 MCG/2 ML Amp IVPUSH STA (21:54)
--- NOTE | 2020-10-02 22:07 | EDM.PDOC ---
ED HPI GENERAL MEDICAL PROBLEM - General Chief Complaint: Cardiovascular Problem Stated Complaint: A-FIB Time Seen by Provider: 10/02/20 21:05 Source of Information: Reports: Patient History Limitations: Reports: No Limitations - History of Present Illness INITIAL COMMENTS - FREE TEXT/NARRATIVE: Patient presented to the ED because of palpitations since 2129. She though it will go away but it didn't. There is no chest pain, nausea,vomiting, or dyspnea. - Related Data Allergies Allergy/AdvReac Type Severity Reaction Status Date / Time Antihistamines - Alkylamine Allergy Cannot Verified 10/02/20 21:29 Remember iodine Allergy Cannot Verified 10/02/20 21:29 Remember Penicillins Allergy Cannot Verified 10/02/20 21:29 Remember povidone-iodine Allergy Cannot Verified 10/02/20 21:29 [From Betadine] Remember soap [From Betadine] Allergy Cannot Verified 10/02/20 21:29 Remember Sulfa (Sulfonamide Allergy Cannot Verified 10/02/20 21:29 Antibiotics) Remember Home Meds: Home Meds Aspirin [Adult Low Dose Aspirin EC] 81 mg PO DAILY 01/30/14 [History] Diltiazem [Cardizem CD] 180 mg PO DAILY 01/30/14 [History] Hydrochlorothiazide/Lisinopril [Lisinopril/HCTZ 20-12.5 MG] 1 tab PO DAILY 01/30/14 [History] atorvaSTATin Calcium [Atorvastatin Calcium] 10 mg PO BEDTIME 01/30/14 [History] Past Medical History - Past Health History Medical/Surgical History: Denies Medical/Surgical History Cardiovascular History: Reports: Afib Other Cardiovascular History: Rapid irregular heart beat, hx of blood clot in both og her legs. 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: Musculoskeletal History: Reports: Back Pain, Chronic Endocrine/Metabolic History: Reports: Obesity/BMI 30+ Oncologic (Cancer) History: Reports: Malignant Melanoma Dermatologic History: Reports: Melanoma - Infectious Disease History Infectious Disease History: Reports: Chicken Pox, Influenza, Measles, Mumps - Past Surgical History HEENT Surgical History: Reports: Adenoidectomy, Tonsillectomy Cardiovascular Surgical History: Reports: None GI Surgical History: Reports: Appendectomy, Cholecystectomy, Colonoscopy Neurological Surgical History: Reports: Discectomy Musculoskeletal Surgical History: Reports: None Oncologic Surgical History: Reports: None Social & Family History - Family History Family Medical History: No Pertinent Family History - Tobacco Use Tobacco Use Status *Q: Never Tobacco User Second Hand Smoke Exposure: No - Caffeine Use Caffeine Use: Reports: Coffee - Recreational Drug Use Recreational Drug Use: No ED ROS GENERAL - Review of Systems Review Of Systems: See Below Constitutional: Reports: No Symptoms HEENT: Reports: No Symptoms Respiratory: Reports: No Symptoms Cardiovascular: Reports: Palpitations Endocrine: Reports: No Symptoms GI/Abdominal: Reports: No Symptoms : Reports: No Symptoms Musculoskeletal: Reports: No Symptoms Skin: Reports: No Symptoms ED EXAM, GENERAL - Physical Exam Exam: See Below Exam Limited By: No Limitations General Appearance: Alert, No Apparent Distress Eye Exam: Bilateral Eye: PERRL Ears: Normal External Exam, Normal Canal Nose: Normal Inspection, Normal Mucosa, No Blood Throat/Mouth: Normal Inspection, Normal Lips, Normal Teeth Head: Atraumatic, Normocephalic Neck: Normal Inspection, Supple, Non-Tender, Full Range of Motion Respiratory/Chest: No Respiratory Distress, Lungs Clear, Normal Breath Sounds Cardiovascular: Normal Peripheral Pulses, Regular Rate, Rhythm, No Edema, No Gallop, No JVD, No Murmur, No Rub, Tachycardia GI/Abdominal: Normal Bowel Sounds, Soft, Non-Tender, No Organomegaly Back Exam: Normal Inspection, Full Range of Motion Extremities: Normal Inspection, Normal Range of Motion, Non-Tender Neurological: Alert, Oriented, CN II-XII Intact, Normal Cognition Course - Vital Signs Text/Narrative:: Labs/EKG was discussed with the patient Cardizem total of 60 mg IV and then she converted to a NSR Last Recorded V/S: Last Vital Signs Temp 36.4 C 10/02/20 21:00 Pulse 145 H 10/02/20 21:00 Resp 17 10/02/20 21:00 BP 124/65 10/02/20 21:00 Pulse Ox 99 10/02/20 21:00 - Orders/Labs/Meds Orders: Active Orders 24 hr Category Date Time Status EKG Documentation Completion [RC] ASDIRECTED Care 10/02/20 21:21 Active Sodium Chloride 0.9% [Saline Flush] Med 10/02/20 21:29 Active 10 ml FLUSH ASDIRECTED PRN EKG 12 Lead [EK] Routine Ther 10/02/20 21:20 Ordered Medication Orders Sodium Chloride (Saline Flush) 10 ml FLUSH ASDIRECTED PRN PRN Reason: flush Last Admin: 10/02/20 21:41 Dose: 10 ml Documented by: LAMBERTO Labs: Laboratory Tests 10/02/20 10/02/20 10/02/20 Range/Units 21:20 21:20 21:20 WBC 7.6 (3.0-10.3) x10-3/uL RBC 4.64 (3.60-5.20) x10(6)uL Hgb 13.8 (11.4-15.5) g/dL Hct 42.6 (34.2-48.2) % MCV 92.0 (76.7-100.5) fL MCH 29.8 (23.9-33.9) pg MCHC 32.4 (31.9-34.8) g/dL RDW 14.4 (12.3-16.5) % Plt Count 240 (151-488) x10(3)uL Sodium 140 (135-145) mmol/L Potassium 3.4 L (3.5-5.3) mmol/L Chloride 101 (100-110) mmol/L Carbon Dioxide 25 (21-32) mmol/L BUN 10 (7-18) mg/dL Creatinine 1.1 H (0.55-1.02) mg/dL Est Cr Clr Drug Dosing 41.09 mL/min Estimated GFR (MDRD) 49 L (>60) BUN/Creatinine Ratio 9.1 (9-20) Glucose 105 (80-116) mg/dL Calcium 9.9 (8.6-10.2) mg/dL Total Bilirubin 0.5 (0.1-1.3) mg/dL AST 16 D (5-25) IU/L ALT 22 (12-36) U/L Alkaline Phosphatase 111 (56-112) IU/L Troponin I 7.6 (4.0-60.3) pg/mL NT-Pro-B Natriuret Pep 290 H (<=125) pg/mL Total Protein 7.1 (6.0-8.0) g/dL Albumin 4.1 (3.2-4.6) g/dL Globulin 3.0 g/dL Albumin/Globulin Ratio 1.4 Meds: Medications Generic Name Dose Route Start Last Admin Trade Name Freq PRN Reason Stop Dose Admin Sodium Chloride 10 ml 10/02/20 21:29 10/02/20 21:41 Saline Flush FLUSH 10 ml ASDIRECTED PRN Administration flush Discontinued Medications Generic Name Dose Route Start Last Admin Trade Name [place] PRN Reason Stop Dose Admin Digoxin 250 mcg 10/02/20 21:54 Lanoxin IVPUSH 10/02/20 21:55 NOW STA Diltiazem HCl 15 mg 10/02/20 21:16 10/02/20 21:22 Diltiazem IVPUSH 10/02/20 21:17 15 mg ONETIME ONE Administration Diltiazem HCl 10 mg 10/02/20 21:33 10/02/20 21:38 Diltiazem IVPUSH 10/02/20 21:34 Not Given ONETIME ONE Diltiazem HCl 25 mg 10/02/20 21:37 10/02/20 21:38 Diltiazem IVPUSH 10/02/20 21:38 25 mg ONETIME ONE Administration Diltiazem HCl 10 mg 10/02/20 21:55 10/02/20 21:58 Diltiazem IVPUSH 10/02/20 21:56 10 mg ONETIME ONE Administration Sodium Chloride 500 mls @ 500 mls/hr 10/02/20 21:23 10/02/20 21:20 Normal Saline IV 10/02/20 22:22 500 mls/hr .BOLUS ONE Administration Departure - Departure Time of Disposition: 22:05 Disposition: Home, Self-Care 01 Condition: Good Clinical Impression: Chronic a-fib Instructions: Atrial Fibrillation, [id number] Referrals: Sanchez Garcia MD [Primary Care Provider] - Forms: ED Department Discharge Additional Instructions: Please read discharge instructions on chronic AFIB Continue Diltiazem as prescribed 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-2 weeks Sepsis Event Note (ED) - Evaluation Sepsis Screening Result: No Definite Risk - Focused Exam Vital Signs: Vital Signs Temp Pulse Resp BP Pulse Ox 10/02/20 21:00 36.4 C 145 H 17 124/65 99 - My Orders Last 24 Hours: My Active Orders 10/02/20 21:20 EKG 12 Lead [EK] Routine 10/02/20 21:21 EKG Documentation Completion [RC] ASDIRECTED 10/02/20 21:29 Sodium Chloride 0.9% [Saline Flush] 10 ml FLUSH ASDIRECTED PRN - Assessment/Plan Last 24 Hours: My Active Orders 10/02/20 21:20 EKG 12 Lead [EK] Routine 10/02/20 21:21 EKG Documentation Completion [RC] ASDIRECTED 10/02/20 21:29 Sodium Chloride 0.9% [Saline Flush] 10 ml FLUSH ASDIRECTED PRN
[2020-10-02] MEDS ORDERED: Potassium Chloride 20 MEQ Tab.ER PO ONE (22:32)
== END 2020-10-02 23:00 | disposition home or self-care (01) ==
LOC: FB.ED 20:56
DX: I48.20 Chronic atrial fibrillation, unspecified (principal); E87.6 Hypokalemia; E66.9 Obesity, unspecified; Z88.0 Allergy status to penicillin; Z88.8 Allergy status to other drugs, medicaments and biological substances; Z88.2 Allergy status to sulfonamides; Z68.36 Body mass index [BMI] 36.0-36.9, adult; Z79.82 Long term (current) use of aspirin; Z79.899 Other long term (current) drug therapy
CPT/HCPCS: 36415; 80053; 83880; 84484; 85027; 93005; 96374; 96376; 99284; 99285; J3490; J7040

== ENCOUNTER 2022-01-10 00:14 | Emergency (ER) | payer MEDICARE, OTHER ==
[2022-01-10 01:35] VITALS: BP 119/65; PULSE 69
[2022-01-10] MEDS: Sodium Phosphate,Monobasic/Sodium Phosphate,Dibasic Enema 133 ML Bottle RECTAL ONE (05:30)
== END 2022-01-10 05:34 | disposition home or self-care (01) ==
LOC: FB.ED 00:14
DX: N81.6 Rectocele (principal); D72.829 Elevated white blood cell count, unspecified; K59.02 Outlet dysfunction constipation; I48.91 Unspecified atrial fibrillation; K21.9 Gastro-esophageal reflux disease without esophagitis; E66.9 Obesity, unspecified; Z68.30 Body mass index [BMI] 30.0-30.9, adult; Z90.49 Acquired absence of other specified parts of digestive tract; Z79.899 Other long term (current) drug therapy; Z79.82 Long term (current) use of aspirin; Z79.01 Long term (current) use of anticoagulants; Z88.8 Allergy status to other drugs, medicaments and biological substances; Z91.041 Radiographic dye allergy status; Z88.0 Allergy status to penicillin; Z88.2 Allergy status to sulfonamides; Z91.048 Other nonmedicinal substance allergy status
CPT/HCPCS: 36415; 74176; 80053; 84484; 85025; 93005; 93010; 99282; 99284-25